=== PATIENT | female | born 1945 | race Caucasian/White ===

== ENCOUNTER 2016-03-28 11:24 | Emergency (ER) | payer BC, MEDICAID ==
[~2016-03-28] VITALS: Ht 157.5 cm; Wt 59.0 kg
[2016-03-28 11:35] VITALS: BP 116/81; PULSE 61; RESP 16; TEMP 98.5; O2SAT 98
--- NOTE | 2016-03-28 11:40 | NUR ---
Patient in stable condition, alert and oriented x4. Patient states that a week ago she bent below a chalk board [facility] and came up and hit left eye on ledge of chalkboard, then left eye began getting red and swollen. White of left eye 100% red, periorbital bruising present. No vision trouble per patient. Bilateral pupils round and reactive to light (equal 2+). Patient denies any confrontation with others. Denies any other injuries/trauma. Denies any passing out. No headache or feeling faint/dizzy per patient. No other complaints/injuries per patient or noted. Addendum: 03/28/16 at 1201 by NALINI +swelling to left eye/periorbital
--- NOTE | 2016-03-28 11:45 | NUR ---
Patient states also has had cough treated at home with antibiotics at this time. No cough noted at this time. MD aware of medication and duration.
--- NOTE | 2016-03-28 14:10 | NUR ---
Patient in stable condition, no distress noted.
--- NOTE | 2016-03-28 14:30 | NUR ---
ER Dr. Pearson at bedside examining patient.
[2016-03-28 15:32] VITALS: BP 136/80; PULSE 68; RESP 18; TEMP 97.6; O2SAT 99
--- NOTE | 2016-03-28 15:32 | NUR ---
Patient given written and verbal discharge instructions and verbalizes understanding. ER MD discussed with patient the results and treatment provided. Patient in stable condition. ID arm band removed. Patient educated on pain management and to follow up with PMD in 2 days. Pain Scale 0/10 Opportunity for questions provided and answered.
== END 2016-03-28 15:32 | disposition home or self-care (01) ==
LOC: SED 11:24
DX: B30.3 Acute epidemic hemorrhagic conjunctivitis (enteroviral) (principal)
CPT/HCPCS: 99283